=== PATIENT | female | born 1940 | race Caucasian/White ===

== ENCOUNTER 2022-10-06 16:53 | Emergency (ER) | payer MEDICARE, SELFPAY ==
[2022-10-06 17:07] VITALS: BP 142/112; PULSE 83; RESP 16; TEMP 36.9; O2SAT 97
--- NOTE | 2022-10-06 17:45 | ED.EXTPRO ---
HPI - Extremity Problem General Chief complaint: Extremity Problem,Nontraumatic <Xiao Shah APRN - Last Filed: 10/06/22 18:50> Stated complaint: left hip pain radiating to left leg <Xiao Shah APRN - Last Filed: 10/06/22 18:50> Time Seen by Provider: 10/06/22 17:31 <Xiao Shah ACCOUNTING OFFICER - Last Filed: 10/06/22 18:50> History of Present Illness HPI Narrative: 82-year-old female presents to the emergency room today for complaints of low back pain that radiates down her left leg. The pain starts at the top of her left buttock and radiates down the left thigh and also goes into the lower part of her leg as well. Denies any numbness or tingling. She is able to ambulate no weakness. Denies any urinary or bowel incontinence. She has been having problems with this since May but has been getting much worse over the past couple of weeks. She is having more difficulty finding position of comfort and is having a hard time sleeping at night. She saw someone at the urgent care a week ago and was given a Medrol Dosepak which did not help. Other than that she has been taking [id number] pain reliever. <Xiao Shah ACCOUNTING OFFICER - Last Filed: 10/06/22 18:50> Related Data Allergies/Adverse reactions: Allergies Allergy/AdvReac Type Severity Reaction Status Date / Time No Known Allergies Allergy Mild Verified 10/06/22 17:15 <Xiao Shah APRN - Last Filed: 10/06/22 18:50> Review of Systems Review of Systems: CONSTITUTIONAL: Denies fever, chills, or sweats. EYES: Denies visual changes, redness, or discharge. ENT: Denies rhinorrhea, congestion, sore throat, or otalgia. CARDIOVASCULAR: Denies chest pain, palpitations, or edema. RESPIRATORY: Denies cough or dyspnea. GASTROINTESTINAL: Denies abdominal pain, nausea, vomiting, or diarrhea. GENITOURINARY: Denies dysuria or hematuria. SKIN: Denies rash or itching. MUSCULOSKELETAL: As per HPI NEUROLOGIC: Denies headache, numbness, dizziness, or weakness. PSYCHIATRIC: Denies anxiety or depression. <Xiao Shah APRN - Last Filed: 10/06/22 18:50> Exam Narrative: GENERAL: Well-appearing, well-nourished, and in no acute distress. HEAD: Normocephalic, atraumatic. NECK: Supple. No adenopathy or masses. No carotid bruits or JVD CHEST: Clear to auscultation. No respiratory distress. No wheezes rales or rhonchi HEART: Regular rate and rhythm. No murmur heard. Normal peripheral pulses. ABDOMEN: Soft, nontender, nondistended, normal active bowel sounds. EXTREMITIES: Normal range of motion. No edema. SKIN: Warm, dry, no rash. NEURO: No focal deficits. Alert and oriented x3. PSYCH: Normal mood and affect. <Xiao Shah, ACCOUNTING OFFICER - Last Filed: 10/06/22 18:50> Course BLOCK PLACER/PA Physician Supervision This is a was performed by both a physician and an APC. I performed all aspects of the MDM as documented w/ the following additions: 82-year-old son have back pain rating down the leg. No red flags on history and physical. Given symptomatic treatment and discharge. All questions answered. Patient in agreement w/ disposition. <Luis Luke MD - Last Filed: 10/09/22 03:50> Vital Signs Vital signs: Vital Signs Temperature 98.5 F 10/06/22 17:07 Pulse Rate 83 10/06/22 17:07 Respiratory Rate 16 10/06/22 17:07 Blood Pressure 142/112 H 10/06/22 17:07 Pulse Oximetry 97 10/06/22 17:07 Oxygen Delivery Room Air 10/06/22 17:07 Temperature 98.5 F 10/06/22 17:07 Pulse Rate 83 10/06/22 17:07 Respiratory Rate 16 10/06/22 17:07 Blood Pressure 142/112 H 10/06/22 17:07 Pulse Oximetry 97 10/06/22 17:07 Oxygen Delivery Room Air 10/06/22 17:07 <Xiao Shah ACCOUNTING OFFICER - Last Filed: 10/06/22 18:50> Vital Signs Temperature 98.5 F 10/06/22 17:07 Pulse Rate 83 10/06/22 17:07 Respiratory Rate 16 10/06/22 17:07 Blood Pressure 142/112 H 10/06/22 17:07 Pulse Oximetry
[2022-10-06] MEDS: TRIAMCINOLONE ACET INJ SUSP 50 MG/5 ML VIAL 40 MG IM (18:53)
[2022-10-06] MEDS: traMADol HCL (*CRX) 50 MG TABLET PO (18:53)
[2022-10-06] MEDS: TIZANIDINE HCL 2 MG TABLET PO (18:53)
== END 2022-10-06 19:06 | disposition home or self-care (01) ==
PROVIDERS: Emergency Provider Nurse Practitioner Family
DX: M54.42 Lumbago with sciatica, left side (principal)
CPT/HCPCS: 96372; 99283; A9270; J3301

== ENCOUNTER 2023-06-07 08:18 | Outpatient (CLI) | payer MEDICARE, SELFPAY ==
[2023-06-07 19:45] LABS: Basophils Percent Auto 0.5 % (0.2-1.2); Eosinophils Absolute Auto 0.3 K/mm3 (0-0.3); Eosinophils Percent Auto 3.8 % (0-4.4); Hematocrit 44.5 % (37.0-47.0); Hemoglobin 14.3 g/dL (12.0-15.0); Immature Granulocyte Absolute 0.02 K/mm3 (0.00-0.031); Immature Granulocyte Percent A 0.3 % (0-0.5); Lymphocytes Absolute Auto 2.17 K/mm3 (0.9-3.2); Lymphocytes Percent Auto 29.6 % (18.3-44.2); Mean Corpuscular HGB Conc 32.1 g/dl (32-36); Mean Corpuscular Hemoglobin 30.7 pg (26-34); Mean Corpuscular Volume 95.5 fl (80-100); Mean Platelet Volume 10.4 fl (7.4-10.4); Monocytes Absolute Auto 0.9 K/mm3 (0.1-0.6); Monocytes Percent Auto 12.8 % (2.6-8.5); Neutrophils Absolute Auto 3.9 K/mm3 (1.3-6.7); Platelet Count Result 248 k/mm3 (150-375); Red Blood Count 4.66 M/mm3 (4.2-5.4); Red Cell Distribution Width 14.3 % (11.5-14.5); White Blood Count 7.3 K/mm3 (4.5-10.0)
[2023-06-07 20:33] LABS: Alanine Aminotransferase 26 U/L (6-35); Albumin Level 4.3 g/dL (3.5-5.1); Alkaline Phosphatase 86 U/L (38-126); Anion Gap 6 mmol/L (8-16); Aspartate Amino Transferase 39 U/L (14-36); Bilirubin,Total 0.8 mg/dL (0.2-1.3); Blood Urea Nitrogen 17 mg/dL (7-17); Calcium 9.3 mg/dL (8.4-10.2); Carbon Dioxide 33 mmol/L (22-30); Chloride 98 mmol/L (98-107); Cholesterol 210 mg/dL (0-200); Estimated Glomerular Filt Rate > 60; Glucose 105 mg/dL (65-110); HDL Direct 72 mg/dL; Potassium 4.3 mmol/L (3.4-5.0); Sodium 137 mmol/L (137-145); Triglycerides 110 mg/dL (<150)
[2023-06-07 20:45] LABS: LDL Cholesterol Direct 99 mg/dL
[2023-06-12 22:02] LABS: Apolipoprotein B 99 mg/dL (<90)
== END 2023-06-07 08:19 | disposition home or self-care (01) ==
LOC: ANHGOSHLAB 08:20
PROVIDERS: PCP Internal Medicine; Visit Provider Internal Medicine
DX: E78.5 Hyperlipidemia, unspecified (principal); I10 Essential (primary) hypertension
CPT/HCPCS: 36415; 80053; 80061; 82172; 85025

== ENCOUNTER 2023-06-22 08:31 | Outpatient (CLI) | payer MEDICARE, SELFPAY ==
--- NOTE | ~2023-06-22 | DEXA_ITS ---
Bone Density Report Name: LUPILLO MORENO Age: 83 Sex: Female Ethnicity: White Date of : 1940 Indication: postmenopausal; screening for osteoporosis; height loss; cancer; Referring Provider: ROMI BELL Study: Bone densitometry was performed. Exam Date: June 22, 2023 Accession number: [id number] Bone Density: Region BMD T-score Z-score Classification AP Spine(L1-L4) 1.138 0.8 3.7 Normal Femoral Neck (Left) 0.735 -1.0 1.4 Normal Total Hip (Left) 0.869 -0.6 1.7 Normal Femoral Neck (Right) 0.687 -1.5 1.0 Osteopenia Total Hip (Right) 0.861 -0.7 1.6 Normal Total Hip Mean 0.865 -0.7 1.7 Normal World Health Organization criteria for BMD impression classify patients as: Normal (T-score at or above -1.0), Osteopenia (T-score between -1.0 and -2.5), or Osteoporosis (T-score at or below -2.5). 10-year Fracture Risk(1): Major Osteoporotic Fracture 13% Hip Fracture 3.4% Reported Risk Factors: [place] (), Neck BMD=0.687, BMI=27.5 (1) FRAX(R) Version 3.08. Fracture probability calculated for an untreated patient. Fracture probability may be lower if the patient has received treatment. Clinical Information Provided by Patient: Has used the following medications: Vitamin D, Calcium Has the following medical conditions: Cancer Patient maximum height was 66 Menopause Age: 44 Does not regularly consume dairy products Drinks caffeinated beverages Onset of menses at age 13 Number of children 2 Impression: The patient has low bone mass, based on the Right Femoral Neck T-score. The patient has an estimated ten-year risk of hip fracture of 3.4% and an estimated ten-year risk of major fracture of 13%, based on the WHO FRAX algorithm. Discussion: BONE DENSITY IS LOW AT ONE OR MORE SKELETAL SITES. THE PATIENT'S BMD AND CLINICAL RISK FACTORS CONTRIBUTE TO THIS PATIENT'S INCREASED RISK OF FRACTURE. This patient's lowest T-score is low at one or more skeletal sites. It meets the World Health Organization's (WHO) criteria for ?low bone mass? (T-score between -1.0 and -2.5). The patient's 10-year risk of hip fracture as calculated by FRAX exceeds the threshold where pharmacological therapy is recommended by the National Osteoporosis Foundation (NOF). However, all treatment decisions require clinical judgment and consideration of individual patient factors, including patient preferences, comorbidities, previous drug use, risk factors not captured in the FRAX model (e.g., frailty, falls, vitamin D deficiency, increased bone turnover, interval significant decline in bone density) and possible under or overestimation of fracture risk by FRAX. The patient should follow a healthful lifestyle (good nutrition with adequate calcium and vitamin D, and appropriate weight-bearing exercise).
== END 2023-06-22 08:32 | disposition home or self-care (01) ==
LOC: ANHIMG 08:32
PROVIDERS: PCP Internal Medicine; Visit Provider Internal Medicine
DX: M85.88 Other specified disorders of bone density and structure, other site (principal); Z78.0 Asymptomatic menopausal state
CPT/HCPCS: 77080

== ENCOUNTER 2023-08-07 16:02 | Emergency (ER) | payer MEDICARE, SELFPAY ==
[2023-08-07 16:02] VITALS: BP 127/94; PULSE 83; RESP 16; TEMP 36.5; O2SAT 97
--- NOTE | 2023-08-07 17:19 | PC.NURSE ---
Patient to desk reporting she feels better and the pain is gone. Patient states she is going to leave. Patient amb out of ED with steady gait and in no acute distress.
== END 2023-08-07 17:40 | disposition left against medical advice (07) ==
LOC: ANHED 17:36
PROVIDERS: PCP Internal Medicine
DX: R10.30 Lower abdominal pain, unspecified (principal)
CPT/HCPCS: 99199

== ENCOUNTER 2023-12-05 09:29 | Outpatient (CLI) | payer MEDICARE, SELFPAY ==
--- NOTE | ~2023-12-05 | MM_ITS ---
EXAMINATION: MM screening stephy BI w isaura HISTORY: Screening TECHNIQUE: Craniocaudal and mediolateral oblique 3-D tomosynthesis images were obtained and synthetic 2-D images were generated. CAD analysis was submitted and interpreted. COMPARISON: No prior mammogram is available for comparison at this institution. BREAST PARENCHYMAL COMPOSITION: Not dense: There are scattered areas of fibroglandular density. FINDINGS: The right breast is unremarkable without evidence for malignancy. There is focal asymmetry in the upper outer quadrant of the left breast, middle third. There is an adjacent tissue marker. IMPRESSION: 1. Left breast asymmetry. 2. Recommend comparison to previous outside mammograms. BI-RADS Category 0: Incomplete: Needs additional imaging evaluation. Reviewed, dictated and finalized at location B.
== END 2023-12-05 09:30 | disposition home or self-care (01) ==
PROVIDERS: PCP Internal Medicine; Visit Provider Clinical Nurse Specialist
DX: Z12.31 Encounter for screening mammogram for malignant neoplasm of breast (principal); R92.8 Other abnormal and inconclusive findings on diagnostic imaging of breast
CPT/HCPCS: 77063; 77067

== ENCOUNTER 2024-01-02 09:01 | Outpatient (CLI) | payer MEDICARE, SELFPAY ==
[2024-01-02 13:42] LABS: Kit Draw Collected
== END 2024-01-02 09:02 | disposition home or self-care (01) ==
LOC: ANHGOSHLAB 09:03
PROVIDERS: PCP Internal Medicine
DX: E78.00 Pure hypercholesterolemia, unspecified (principal); I10 Essential (primary) hypertension
CPT/HCPCS: 36415

== ENCOUNTER 2024-02-04 11:16 | Outpatient (CLI) | payer MEDICARE, SELFPAY ==
[2024-02-04 13:38] LABS: Thyroid Stimulating Hormone 0.882 uIU/mL (0.465-4.680); Total Triiodothyronine (T3) 0.99 NG/ML (0.97-1.69)
[2024-02-04 14:59] LABS: Free T4 Free Thyroxine 1.59 ng/mL (0.78-2.19)
== END 2024-02-04 11:17 | disposition home or self-care (01) ==
PROVIDERS: PCP Internal Medicine
DX: E89.0 Postprocedural hypothyroidism (principal)
CPT/HCPCS: 36415; 84439; 84443; 84480

== ENCOUNTER 2024-06-25 09:06 | Outpatient (CLI) | payer MEDICARE, SELFPAY ==
--- OUTSIDE RECORDS SUMMARY | 2024-06-25 10:05 | XMS_ITS | Patient Health Record ---
Author Organization [facility] Address [address] [address] Care Team Providers Care Change Agent Name Role Phone PurnimaAvaubaldolornalee Primary Care Provider Najma anglin Sandhya Joy Unavailable [phone] ALLERGIES No Known Allergies RESULTS Component Value Reference Range Notes TSH, 3RD GENERATION Reviewed date:07/26/2023 02:06:06 PM Interpretation: Performing Lab:[facility], [address] [place], [address] Noah Deleon Notes/Report: FASTING:NO FASTING: NO TSH 7.62 0.40-4.50 mIU/L T3, TOTAL Reviewed date:07/26/2023 05:28:21 AM Interpretation: Performing Lab:[facility], [address] [place], [address] Noah Deleon MD Notes/Report: FASTING:NO FASTING: NO T3, TOTAL 71 76-181 ng/dL T4, FREE Reviewed date:07/26/2023 05:28:27 AM Interpretation: Performing Lab:[facility], [address] [place], [address] Noah Deleon MD Notes/Report: FASTING:NO FASTING: NO T4, FREE 1.4 0.8-1.8 ng/dL TSH, 3RD GENERATION Reviewed date:09/16/2023 08:17:02 AM Interpretation: Performing Lab:[facility], [address] [facility], [place], [address] RafaelaYaz Deleon MD Notes/Report: TSH 2.21 0.40-4.50 mIU/L T3, TOTAL Reviewed date:09/11/2023 12:26:47 PM Interpretation: Performing Lab:[facility], [facility], [address], [place], [address] RafaelaYaz Deleon MD Notes/Report: T3, TOTAL 77 76-181 ng/dL T4, FREE Reviewed date:09/11/2023 12:27:04 PM Interpretation: Performing Lab:[facility], [facility], [address] [facility], [place], [address] [facility] Notes/Report: T4, FREE 1.6 0.8-1.8 ng/dL TSH Reviewed date:12/24/2023 05:16:16 PM Interpretation: Performing Lab:[facility], [address] [place] [address], Phone - [phone], Director - [facility] Notes/Report: TSH 0.237 0.450-4.500 uIU/mL T4, Free Reviewed date:12/24/2023 05:10:53 PM Interpretation: Performing Lab:[facility], [address] [place] [address], Phone - [phone], Director - [facility] Notes/Report: T4,Free(Direct) 2.10 0.82-1.77 ng/dL T3, Total Reviewed date:12/24/2023 05:10:58 PM Interpretation: Performing Lab:[facility], [address] [place] [address], Phone - [phone], Director - [facility] Notes/Report: Triiodothyronine (T3) 90 71-180 ng/dL TSH, 3RD GENERATION Reviewed date:02/05/2024 02:25:54 PM Interpretation: Performing Lab: Notes/Report: TSH, 3RD GENERATION 0.882 0.47 - 4.68 ilU/mL T3, TOTAL Reviewed date:02/05/2024 10:40:32 AM Interpretation: Performing Lab: Notes/Report: T3, TOTAL 0.99 76 - 180 ng/dL T3, Total T4, FREE Reviewed date:02/05/2024 10:40:37 AM Interpretation: Performing Lab: Notes/Report: T4, FREE 1.59 TSH Reviewed date:06/24/2024 05:38:27 PM Interpretation: Performing Lab:[address], Phone - [phone], Director - [facility] Notes/Report: TSH 2.180 0.450-4.500 uIU/mL T4, Free Reviewed date:06/24/2024 02:10:46 PM Interpretation: Performing Lab:[address], Phone - [phone], Director - [facility] Notes/Report: T4,Free(Direct) 1.90 0.82-1.77 ng/dL T3, Total Reviewed date:06/24/2024 02:11:11 PM Interpretation: Performing Lab:[address], Phone - [phone], Director - [facility] Notes/Report: Triiodothyronine (T3) 73 71-180 ng/dL REASON FOR REFERRAL No Information MEDICATIONS Medication SIG (Take, Route, Frequency, Duration) Notes Start Date End Date Status hydroCHLOROthiazide 25 MG 1 tablet in th e morning Orally Once a day for 30 day(s) Active Benadryl 1/2 tab qHS prn Active Fexofenadine HCl 60 MG 1 tablet Orally Once a day Active Centrum Silver - as directed Orally Active Fish Oil 1000 MG 1 capsule Orally Once a day for 30 day(s) Active Rosuvastatin Calcium 10 MG 1 tablet Oral ly at bedtime Active Omeprazole 20 MG 1 capsule 1/2 [...] since you last smoked? > 10 years PROBLEMS Problem Type ICD Code Onset Dates Problem Status W/U Status Risk SNOMED Code Notes Problem Papillary thyroid carcinoma (C73) Active confirmed Papillary thyroid carcinoma (165123761) 12/02 The thyroid is surgically absent. 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) VITAL SIGNS Heart Rate 80 /min 2024 wt 155 on 4 Blood pressure diastolic 70 mm Hg 2024 wt 155 on 12-23-23 Height 65 in 2024 wt 155 on 4 Blood pressure systolic 128 mm Hg 2024 wt 1 55 on 12-23-23 Weight 149.6 lbs 2024 wt 155 on 4 BMI 24.89 kg/m2 2024 wt 155 on 4 Encounters Encounter Location Date Provider Diagnosis [facility] [address] [address] 12/23/2023 Sandhya Barrientosknine Hypothyroidism, postop E89.0 and Papillary thyroid carcinoma C73 [facility] [address] [address] 2024 Sandhya Young Oiknine Hypothyroidism, postop E89.0 and Papillary thyroid carcinoma C73 [facility] [address] [address] 07/26/2023 Sandhya Young Oiknine Hypothyroidism, postop E89.0 [facility] [address] [address] 09/16/2023 Sandhya Young Oiknine Hypothyroidism, postop E89.0 [facility] [address] [address] 12/23/2023 Sandhya Barrientosknine Hypothyroidism, postop E89.0 [facility] [address] [address] 02/17/2024 Sandhya Barrientosknine [facility] [address] [address], [place] [address] 03/05/2024 Sandhya Young Norberto ASSESSMENTS Encounter Date Diagnosis Assessment Notes Treatment Notes Treatment Clinical Notes 12/23/2023 Hypothyroidism, postop (ICD-10 - E89.0) Reviewed dosing and [...] no palpable thyroid tissue or cervical LAD. 2024 Hypothyroidism, postop (ICD-10 - E89.0) Reviewed dosing and [...] no palpable thyroid tissue or cervical LAD. 07/26/2023 Hypothyroidism, postop (ICD-10 - E89.0) 09/16/2023 Hypothyroidism, postop (ICD-10 - E89.0) 12/23/2023 Hypothyroidism, postop (ICD-10 - E89.0) PLAN OF TREATMENT Next Appt Details Provider Name:Sandhya Ventura komal Thornton, 12/21/2024 11:30:00 AM, [address] [facility] [address], [place], [address], Insurance Providers Payer Name Payer Address Payer Phone Subscriber Number Group Number Insured Name Patient Relationship to Insured Coverage Start Date Coverage End Date Medicare [address] [address] [place] [address] [id number] Nohelia Hinojosa Self - patient is the insured [employer] [address] [place] [address] [id number] Nohelia Hinojosa Self - patient is the insured MEDICAL (GENERAL) HISTORY Medical History History ICD Code HBP High Cholesterol Hypothyroid s/p total thyroidectomy 2002 Papillary Thyroid Carcinoma, 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
--- OUTSIDE RECORDS SUMMARY | 2024-06-25 10:05 | XMS_ITS ---
Author Organization [facility] Address [address] [address] Care Team Providers Care Oracle Application Architect Name Role Phone PurnimaDaniel ball Primary Care Provider Sandhya Soni REASON FOR VISIT CCM MEDICATIONS Medication SIG (Take, Route, Fr equency, Duration) Notes Start Date End Date Status Omeprazole 20 MG 1 capsule 1/2 to 1 h our before morning meal Orally Once a day for 30 day(s) 02/17/2024 Active Encounters Encounter Location Date Provider Diagnosis [facility] [address] [address] 02/17/2024 Sandhya Thornton PLAN OF TREATMENT Medication Medication Name Sig Start Date Stop Date Notes Omeprazole 20 MG 1 capsule 1/2 to 1 h our before morning meal Orally Once a day for 30 day(s) 02/17/2024 Next Appt Details Provider Name:Sandhya Thornton, 12/21/2024 11:30:00 AM, [address], [address],
--- OUTSIDE RECORDS SUMMARY | 2024-06-25 10:05 | XMS_ITS | Encounter Summary ---
Author Organization [facility] Address [address] [place] [address] Care Team Providers Care Chemical Plant Operator Supervisor Name Role Phone Shawn Constantino MD Primary Care Provider [phone] Encounter Details Date Type Department Care Team (Late st Contact Info) Description 10/26/1999 Outpatient Historical [facility] Shawn Constantino MD [address] [place] [address] Social History Tobacco Use Types Packs/Day Years Used Date Smoking Tobacco: Never Assessed Comments Unknown Sex and Gender Information Value Date Recorded Sex Assigned at Not on file Legal 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
--- OUTSIDE RECORDS SUMMARY | 2024-06-25 10:05 | XMS_ITS ---
Author Organization [facility] Address [address] [address] Care Team Providers Care Kitchen And Bath Designer Name Role Phone Daniel Felton Primary Care Provider Sandhya Soni REASON FOR VISIT Synthroid Question MEDICATIONS Medication SIG (Take, Route, Fr equency, Duration) Notes Start Date End Date Status Synthroid 100 MCG 1 tablet in the morn ing on an empty stomach Orally Once a day for 30 day(s) 03/10/2024 Active Encounters Encounter Location Date Provider Diagnosis [facility] [address] [address] 03/05/2024 Sandhya Thornton PLAN OF TREATMENT Medication Medication Name Sig Start Date Stop Date Notes Synthroid 112 MCG TAKE 1 TABLET BY RALPH TH EVERY DAY FOR 90 DAYS Synthroid 100 MCG 1 tablet in the morn ing on an empty stomach Orally Once a day for 30 day(s) 03/10/2024 Next Appt Details Provider Name:Sandhya Thornton, 12/21/2024 11:30:00 AM, [address], [address],
--- OUTSIDE RECORDS SUMMARY | 2024-06-25 10:05 | XMS_ITS | Patient Health Record ---
Author Organization [facility] Address [address] [place] [address] Care Team Providers Care Enterprise Mobility Architect Name Role Phone Shawn Constantino Primary Care Provider Namja Ruvalcaba DPM, Elia Unavailable [phone] ALLERGIES No Known Allergies REASON FOR REFERRAL No Information MEDICATIONS Medication SIG (Take, Route, Fr equency, Duration) Notes Start Date End Date Status Aspirin Active [place] 3 Active Centrum Silver Activ e Meloxicam 7.5 MG 1 tablet Orally Once a day for 30 days 10/08/2022 Active hydroCHLOROthiazide Active Deepthi Active Calcium Active Vitamin D Active Synthroid Active Voltaren Active Aleve Active Crestor Active IMMUNIZATIONS Vaccine Route Administration Date Status Comme nts Influenza Unknown 07/27/2020 Administered pneumoccocal Unknown 07/27/2020 Administered SOCIAL HISTORY Tobacco Use: Social History Observation Description Date Details (start date - stop date) Former Smoker NA - NA Sex Assigned At : Social History Observation Description Sex Assigned At Unknown Tobacco Use: Question Answer Notes Patient is a: former smoker Alcohol screening: Question Answer Notes Did you have a drink contain ing alcohol in the past year? Yes How often did you have a dri nk containing alcohol in the past year? Four or more times a week (4 points) How many drinks did you have on a typical day when you were drinking in the past year? 1 or 2 (0 points) How often did you have six o r more drinks on one occasion in the past year? Never (0 points) Points 4 Interpretation Positive PROBLEMS Problem Type ICD Code Onset Dates Problem Status W/U Status Risk SNOMED Code Notes Problem Flat foot [pes planus] (acquired), right foot (M21.41) 2 Active confirmed 858546602677049 Problem Impingement syndrome of right shoulder (M75.41) Active confirmed 497494468020520 Problem Bursitis of right shoulder (M75.51) Active confirmed 132133620541388 Problem Peroneal tendinitis, right leg (M76.71) 2 Active confirmed Peroneal tendinitis (44740081) Problem Posterior tibial tendinitis, right leg (M76.821) 2 Active confirmed [id number] PLAN OF TREATMENT No Information Insurance Providers Payer Name Payer Address Payer Phone Subscriber Number Group Number Insured Name Patient Relationship to Insured Coverage Start Date Coverage End Date Medicare [address] [place] [address] [phone] [id number] Nohelia Hinojosa Self - patient is the insured [facility] [address] [place] [address] [phone] [id number] CouNohelia wynn Self - patient is the insured MEDICAL (GENERAL) HISTORY Medical History History ICD Code thyroid cancer skin cancer mitral valve prolapse hypertension hyperlipidemia Surgical History Surgery Date(Month/Year) symptomatic right foot hardware removal 11/24/13 right hallux MTP joint fusion and a seco nd hammertoe repair 05/01/13 lt hallux MTP jont arthrodes is, lt 2nd hammer toe repair, lt 2nd metatarsal neck osteotomy 05/09/10 thyroidectomy 2003 gallbladder
--- OUTSIDE RECORDS SUMMARY | 2024-06-25 10:05 | XMS_ITS ---
Author Organization [facility] [place] Address [address] [place] [address] Care Team Providers Care Automatic Silk Screen Printer Name Role Phone Haile Maravilla Unavailable [phone] ALLERGIES No Known Allergies REASON FOR VISIT MCR/SUPP/ Dr. 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) Active confirmed Localized, primary osteoarthritis of the pelvic region and thigh (075354508) Problem 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) Active confirmed Inflammation o f left sacroiliac joint (5464437740) Problem History of lumbar laminectomy (Z98.890) Active confirmed History of lumb ar laminectomy ([id number]) VITAL SIGNS Temperature 98.1 degrees Fahrenheit 01/15/20 23 Blood pressure systolic 160 mm Hg 01/15/20 23 Blood pressure diastolic 84 mm Hg 023 Heart Rate 84 /min 01/14/2023 Respiratory Rate 18 /min 01/14/2023 Height 65 in 01/14/2023 Weight 155 lbs 01/14/2023 BMI 25.79 kg/m2 01/14/2023 Encounters Encounter Location Date Provider Diagnosis [facility] [address] [address] 01/14/2023 Haile Maravilal Arthropathy of left hip M16.12 ; Inflammation of left sacroiliac joint M46.1 and History of lumbar laminectomy Z98.890 ASSESSMENTS Encounter Date Diagnosis Assessment Notes Treatment Notes Treatment Clinical Notes Section Notes 01/14/2023 Arthropathy of left hip (ICD-10 - M16.12) Impression1. Persistent left hip pain although plain radiographs do not demonstrate significant osteoarthritic changes.2. Possible component left sacroiliitis.3. Other causes for unilateral hip/thigh pain might include lower lumbar facet arthropathy (lumbar spondylosis).4. Subacute left L4/5 hemilaminotomy/lat eral recess decompression 11/15/2022.Plan1. Proceed with left hip joint injection with fluoroscopy. She does not request sedation.2. Patient will call progress report to Dr. Palomo Solorzano's office over the next couple of days. Pain scores on numeric scale:Preinje ction: 08/22Post injection: 210 01/14/2023 Inflammation of left sacroiliac joint (ICD-10 - M46.1) 01/14/2023 History of lumbar laminectomy (ICD-10 - Z98.890) PLAN OF TREATMENT Treatment Notes Assessment Notes Arthropathy of left hip Impression1. Per sistent left hip pain although plain radiographs do not demonstrate significant osteoarthritic changes.2. Possible component left sacroiliitis.3. Other causes for unilateral hip/thigh pain might include lower lumbar facet arthropathy (lumbar spondylosis).4. Subacute left L4/5 hemilaminotomy/lateral recess decompression 11/15/2022.Plan1. Proceed with left hip joint injection with fluoroscopy. She does not request sedation.2. Patient will call progress report to Dr. Palomo Solorzano's office over the next couple of days. MEDICATIONS ADMINISTERED Medication Instructions Date of Administration Dosage Notes LEFT Hip Joint Injection wit h fluoroscopy 01/14/2023 Procedure Notes * Category Sub-Category Detail Notes DGS: Hip Joint Injections Left Hip Joint Injection Left hip joint injection wit h fluoroscopyAfter signing consent, patient was taken to procedure area where she was placed supine on fluoroscopically compatible table. Monitors were applied consisting of automatic blood pressure cuff and pulse oximeter. No sedation was administered and no IV established. Left inguinal/proximal anterior thigh prepped with ChloraPrep, allowed to dry on the skin. Sterile drapes were applied and aseptic technique observed. Using AP fluoroscopy, with internal rotation of the left lower extremity to improve image quality, left hip joint was identified and overlying skin anesthetized with 0.25% preservative-free bupivacaine via 27-gauge needle. A 22-gauge 3.5 inch spinal needle was inserted in contact made anteriorly at the junction between femoral head/neck. After negative aspiration for blood or joint fluid, injection of less than 1.5 mL Omnipaque 240 revealed filling of the hip joint capsule and femoro-acetabular joint space. This was followed by injection of 7 mL volume containing 0.25% preservative-free bupivacaine with 40 mg preservative-free triamcinolone. Needle was withdrawn tip intact. No complications were encountered. Latex free Band-Aid was placed over the puncture site. She was transported to recovery area where she was observed for short while before being discharged in satisfactory condition. She was improved at the time of discharge. Please refer to clinical notes for specific pain scores. Progress Notes * Nohelia HINOJOSA:1940 ( 82 yo F)Acc No.[id number]:01/14/2023 Progress Notes Patient: Nohelia Hinojosa Provider: Haile Maravilla DO :1940 Age:82 Y Sex:Female Date:01/14/2023 Address:[address] [place], [place] [address] Subjective: * Chief Complaints: * MCR/SUPP/ Dr. Palomo Solorzano/ YULIYA and LEFT Hip Joint Injection (local) * HPI: New Patient Questionnaire: Pain Evaluation The patient completed a questionnaire that best described the pain. This form was reviewed and the responses included in this note. When did the pain first begin? months ago. What caused the pain? unknown. Where does the pain start? left hip and thigh. Where does the pain seem to travel? to knee. On scale of 1 to 10, what is the pain like today? 5. On a scale of 1 to 10, what is your least pain? 3. On a scale of 1 to 10, what is your worst pain? 6. On a scale of 1 to 10, what is your overall average pain? 5. In your words, what best describes your pain? aching. The pain is best described as: moderate. As times goes by, is the pain getting? about the same. Which symptoms is the pain associated with? weakness. What makes the pain worse? walking, standing, rolling in bed, moving from sitting to standing. Which factors seem to relieve the pain? sitting. What previous treatments have you tried? heat. Have you ever tried Physical Therapy? yes- 4 months ago. List past medications taken for your pain problem aleve. Oswestry Score 0. This 82-year-old white female presents the pain clinic today upon referral from Dr. Palomo Solorzano, her neurosurgical end user consultant, suggesting left hip joint injection. This patient describes previous left sciatic symptoms that resolved following left L4/5 hemilaminotomy/lateral recess decompression 11/15/2022. Within a few days of surgery, she noted pain along the left lateral hip, anterior thigh and inguinal region. Previously, she had been involved in physical therapy July and August 2022 with no substantial improvement. She gives history of left-sided pelvic fracture 1994, treated conservatively of uncertain clinical contribution. She does not describe residual numbness in the lower extremities nor does she describe foot drop or neurogenic bowel/bladder symptoms. She has history of thyroid cancer 2002 treated with thyroidectomy and subsequent I-131 making her hypothyroid for which she takes HRT, hypertension and hyperlipidemia. She is a non-smoker. She denies known drug allergies. I adalid study X -ray left hip 08/20/2022 revealed mild arthritic changes with no acute findings. * ROS: Pain Management ROS: Patient Denies: GENERAL: weight or appetite changes, fever, chills, disturbed sleeping habits. Patient Denies: EYE: eye infections, blurred vision, double vision, blindness. Patient Denies: ENT: hearing loss, inflamed nose, hoarseness, sore throat, bloody nose, sinusitis, dizziness. Patient Denies: CARDIAC: chest pains, heart murmur, skipped beats. Patient Denies: GENITOURINARY bladder incontinence, difficulty urinating. Patient Denies: RESPIRATORY cough, coughing up blood, wheezing, shortness of breath, difficulty breathing on exertion. Patient Denies: GI constipation, diarrhea, blood in stools, nausea/vomiting. Patient Denies: NEUROLOGIC headaches, dizziness, falling, seizures, numbness, tremor. Patient Denies: ENDOCRINE hot and cold flashes. Patient Denies: HEMATOLOGICAL easy bruisability, difficulty in clotting the blood. Patient Denies: JOINTS joint or muscle limitation and pain other than the present illness. Patient Denies: PSYCHIATRIC: depression, mood swings, anxiety. Patient Denies: SKIN lacerations, abrasions, postules, nodules, tumors, breast changes. * Medical History: * Surgical History: gallbladder 2000thyroidectomy 2022 * Hospitalization/Major Diagno stic Procedure: No Hospitalization History. * Family History: Father: . Mother: . * Social History: Tobacco Use: Tobacco Use/Smoking Are you a former smoker How long has it been since you last smoked? > 10 years Occupation Status: Employment Status: Retired. Marital Status: Marital Status: . Workmen's Compensation: Work Comp Status: Not being treated under Workmen's Compensation, Not Receiving Disability benefits, Not involved in legal action related to pain problem or considering it in the future. Number of Children: Number of children: 2. Education: How far did you get in your education?: college. Drugs/Alcohol: Caffeine Intake: 1-2 cups per day Do you drink alcohol?: Socially. * Medications: TakingAleve Deepthi Allergy 60 MG Tablet 1 tablet Orally Twice a day Fish Oil Calcium Crestor 10 MG Tablet 1 tablet Orally Once a day hydroCHLOROthiazide 25 MG Tablet Oral Synthroid 88 MCG Tablet Oral Acetyl Salicylic Acid Medication List reviewed and reconciled with the patientTaking Aleve Taking Deepthi Allergy 60 MG Tablet 1 tablet Orally Twice a day Taking Fish Oil Taking Calcium Taking Crestor 10 MG Tablet 1 tablet Orally Once a day Taking hydroCHLOROthiazide 25 MG Tablet Oral Taking Synthroid 88 MCG Tablet Oral Taking Acetyl Salicylic Acid Medication List reviewed and reconciled with the patient * Allergies: N.K.D.A.no[Allergies Verified] Objective: * Vitals: Temp: 98.1 F, HR: 84 /min, BP: 160/84 mm Hg, Wt: 155 lbs, BMI: 25.79 Index, Ht: 65 in, RR: 18 /min, Ht-cm: 165.1 cm, Wt-k.31 kg. * Examination: DGS: New Patient Exam: General The patient appeared in no distress at rest, The patient is alert and oriented to time, person, and place. Respiratory The lungs are grossly clear to auscultation in all benz. Cardiovascular Auscultation reveals a regular rate and sinus rhythm without obvious murmur. There are no extra sounds. The carotid upstroke is brisk and there are no bruits. There is no peripheral edema. Gastrointestinal Abdomen is soft and nontender without obvious organomegaly or masses. Musculoskeletal Fairly well compensated gait is observed. Midline lumbar scar consistent with surgical history. No appreciable lumbar paravertebral tenderness noted. She reported only tightness with greater than 60 degrees trunk flexion and minimal discomfort with 15 degrees trunk extension, both evaluated from upright standing position. In seated position, Flo's on the right was grossly unremarkable. Findings on the left were unremarkable with only slight hint of limitation full internal rotation. Semaj on the left is at least equivocally positive. There was no focal tenderness over the lateral aspect of the hip/trochanteric area.? Overlying skin appears normal.. Neurologic Patient does not describe discrete areas of sensory loss in the lower extremities as tested by light touch. DTRs +1 bilateral patella and Achilles. Sciatic stretch sign grossly negative. With somewhat tight hamstrings. Bilateral ankle dorsiflexion and plantarflexion against resistance appear normal. Specific bilateral EHL function against resistance is normal. She does not describe neurogenic bowel/bladder symptoms.. Assessment: * Assessment: 1. Arthropathy of left hip - M16.12 (Primary) 2. Inflammation of left sacroiliac joint - M46.1 3. History of lumbar laminectomy - Z98.890 Plan: * Treatment: * Procedures: DGS: Hip Joint Injections: Left Hip Joint Injection Left hip joint injection with fluoroscopy After signing consent, patient was taken to procedure area where she was placed supine on fluoroscopically compatible table. Monitors were applied consisting of automatic blood pressure cuff and pulse oximeter. No sedation was administered and no IV established. Left inguinal/proximal anterior thigh prepped with ChloraPrep, allowed to dry on the skin. Sterile drapes were applied and aseptic technique observed. Using AP fluoroscopy, with internal rotation of the left lower extremity to improve image quality, left hip joint was identified and overlying skin anesthetized with 0.25% preservative-free bupivacaine via 27-gauge needle. A 22-gauge 3.5 inch spinal needle was inserted in contact made anteriorly at the junction between femoral head/neck. After negative aspiration for blood or joint fluid, injection of less than 1.5 mL Omnipaque 240 revealed filling of the hip joint capsule and femoro-acetabular joint space. This was followed by injection of 7 mL volume containing 0.25% preservative-free bupivacaine with 40 mg preservative-free triamcinolone. Needle was withdrawn tip intact. No complications were encountered. Latex free Band-Aid was placed over the puncture site. She was transported to recovery area where she was observed for short while before being discharged in satisfactory condition. She was improved at the time of discharge. Please refer to clinical notes for specific pain scores.. * Therapeutic Injections: LEFT Hip Joint Injection with fluoroscopy given by Haile Maravilla DO * Procedure Codes: LEFT Hip Joint Injection with fluoroscopy * Preventive Medicine: PQRS: PQRS G8420:Normal BMI - f/u plan not required. , G8428: Current medication with name, dosage, frequency, or route NOT documented, not given - performance NOT met., 1036F: Patient screened for tobacco use and identified as a non-user of tobacco.. Oswestry Score: Oswestry Score 0. * Images: * Sign off status: Completed true * Provider: Haile Maravilla DO Date: 01/14/2023 History and Physical Notes * HPI (History of Present Illness) Category Sub-Category Detail Notes Category Not es New Patient Questionnaire When did the pain first begin? months ago This 82-year-old white female presents the pain clinic today upon referral from Dr. Palomo Solorzano, her neurosurgical end user consultant, suggesting left hip joint injection. This patient describes previous left sciatic symptoms that resolved following left L4/5 hemilaminotomy/later al recess decompression 11/15/2022. Within a few days of surgery, she noted pain along the left lateral hip, anterior thigh and inguinal region. Previously, she had been involved in physical therapy July and August 2022 with no substantial improvement. She gives history of left-sided pelvic fracture 1994, treated conservatively of uncertain clinical contribution. She does not describe residual numbness in the lower extremities nor does she describe foot drop or neurogenic bowel/bladder symptoms. She has history of thyroid cancer 2002 treated with thyroidectomy and subsequent I-131 making her hypothyroid for which she takes HRT, hypertension and hyperlipidemia. She is a non-smoker. She denies known drug allergies. Imaging study X-ray left hip 08/20/2022 revealed mild arthritic changes with no acute findings. What caused the pain? unknown Where does the pain start? left hip and thigh Where does the pain seem to travel? to k nee On scale of 1 to 10, what is the pain like today? 5 On a scale of 1 to 10, what is your least pain? 3 On a scale of 1 to 10, what is your worst pain? 6 On a scale of 1 to 10, what is your overall average pain? 5 In your words, what best linsey cribes your pain? aching The pain is best described as: moderate As times goes by, is the pain getting? a bout the same Which symptoms is the pain a ssociated with? weakness What makes the pain worse? walking, altagracia ding, rolling in bed, moving from sitting to standing Which factors seem to relieve the pain? sitting What previous treatments have you tried? heat Have you ever tried Physical Therapy? ye s- 4 months ago List past medications taken for your pain problem aleve Pain Evaluation The patient complete d a questionnaire that best described the pain. This form was reviewed and the responses included in this note Oswestry Score 0 Examination Category Sub-Category Detail Notes Category Not es DGS: New Patient Exam General The patien t appeared in no distress at rest, The patient is alert and oriented to time, person, and place Respiratory The lungs are grossl y clear to auscultation in all benz Cardiovascular Auscultation reveals a regular rate and sinus rhythm without obvious murmur. There are no extra sounds. The carotid upstroke is brisk and there are no bruits. There is no peripheral edema Gastrointestinal Abdomen is soft and nontender without obvious organomegaly or masses Musculoskeletal Fairly well compensa jadon gait is observed. Midline lumbar scar consistent with surgical history. No appreciable lumbar paravertebral tenderness noted. She reported only tightness with greater than 60 degrees trunk flexion and minimal discomfort with 15 degrees trunk extension, both evaluated from upright standing position. In seated position, Flo's on the right was grossly unremarkable. Findings on the left were unremarkable with only slight hint of limitation full internal rotation. Semaj on the left is at least equivocally positive. There was no focal tenderness over the lateral aspect of the hip/trochanteric area. Overlying skin appears normal. Neurologic Patient does not linsey cribe discrete areas of sensory loss in the lower extremities as tested by light touch. DTRs +1 bilateral patella and Achilles. Sciatic stretch sign grossly negative. With somewhat tight hamstrings. Bilateral ankle dorsiflexion and plantarflexion against resistance appear normal. Specific bilateral EHL function against resistance is normal. She does not describe neurogenic bowel/bladder symptoms.
--- OUTSIDE RECORDS SUMMARY | 2024-06-25 10:05 | XMS_ITS | Clinical Summary ---
Author Organization [facility] Address [address] [place] [address] Phone Care Team Providers Care Right Of Way Maintenance Supervisor Name Role Phone Shawn Constantino MD Primary Care Provider [phone] Allergies No known active allergies Medications rosuvastatin (CRESTOR) 10 mg tablet Take 10 mg by mouth daily at bedtime. Active multivitamin (DAILY-CASE) tablet Take 1 Tablet by mouth daily. Active hydrochlorothia zide 25 mg tablet Take 25 mg by mouth daily. Active levothyroxine 100 mcg tablet Take 100 mcg by mouth. 02/16/2022 Active fexofenadine (Deepthi Allergy) 60 mg tablet Take 180 mg by mouth daily. Active rosuvastatin (CRESTOR) 10 mg tablet Take 10 mg by mouth daily. Active calcium carbonate/vitam in D3 (CALCIUM 500 + D ORAL) Take 500 mg by mouth daily. Active fofrv-3-NAD-EPA -fish oil (Fish OiL) 1,000 mg Capsule Take 1 Capsule by mouth. Active naproxen sodium (Aleve) 220 mg Capsule Take 220 mg by mouth 1 time daily as needed. Active methylPREDNISol one (MEDROL DOSPACK) 4 mg Tablets, Dose Pack Medrol Dosepak as directed 21 Tablet 03/27/2023 Active Active Problems Problem Noted Date Diagnosed Date History of lumbar laminectomy 08/19/2023 Primary localized osteoarthritis of pelvic regio n and thigh 08/19/2023 Hypercholesterolemia 08/06/2022 Hypertension 08/06/2022 Localized, primary osteoarthritis of ankle or fo ot 08/06/2022 Malignant neoplasm of thyroid gland 08/06/2022 Encounters Date Type Department Care Team Description 06/03/2024 External Device Data [facility] ABSTRACTION Provider, Abstract 05/13/2024 External Device Data [facility] Provider, Abstract 05/07/2024 External Device Data [facility]STRACTION Provider, Abstract from Last 3 Months Social History Tobacco Use Types Packs/Day Years Used Date Smoking Tobacco: Former Cigarettes Tobacco Cessation:Counseling Given: Not Answered Comments Unknown Sex and Gender Information Value Date Recorded Sex Assigned at Not on file 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 Gender Identity Not on file Sexual Orientation Not on file Last Filed Vital Signs Vital Sign Reading Time Taken Comments Blood Pressure - - Pulse - - Temperature - - Respiratory Rate - - Oxygen Saturation - - Inhaled Oxygen Concentration - - Weight 70.3 kg (155 lb) 08/21/2023 10:03 AM CDT Height 165.1 cm (5' 5 ) 08/21/2023 10:03 AM CDT Body Mass Index 25.79 08/21/2023 10:03 AM CDT Plan of Treatment Health Maintenance Due Date Last Done Comments DTAP/TDAP/TD VACCINES (1 - Tdap) 06/21/1958 PNEUMOCOCCAL VACCINE 50+ YEA RS (1 of 1 - PCV) 06/21/1989 ZOSTER VACCINE (1 of 2) 06/21/1989 OSTEOPOROSIS SCREENING 06/21/2004 RSV VACCINE (60+ or ) (1 - 1-dose 75+ series) 06/21/2014 INFLUENZA VACCINE (#1) 2023 FIT/FOBT Q 1 year Discontinued 10/26/1999 COLORECTAL SCREENING Discontinued 12/13/2014, 10/20/19 05 Colorectal Cancer Screening Discontinued FIT-DNA Q 3 years Discontinued Flex Sig/CT Colonography Q 5 years Discontinued Procedures Procedure Name Priority Date/Time Associated Diagnosis Comments ENDOSCOPY, COLON, SCREENING Routine 12/13/2014 from Last 3 Months or Most Recently Relevant to Health Maintenance Results * (ABNORMAL) ENDOSCOPY, COLON, SCREENING (12/13/2014) us Saeed Pillai MD GI PROCEDURE ORDERABLES Edited R esult - Final [facility] from Last 3 Months or Most Recently Relevant to Health Maintenance Insurance [facility] SUPP MEDICARE PART A AND B Care Teams Right Of Way Maintenance Supervisor Relationship Specialty Start Date End Date Shawn Constantino MD [facility] [address] [id number] PCP - General Interventional Cardiology 12/02/14
--- OUTSIDE RECORDS SUMMARY | 2024-06-25 10:05 | XMS_ITS ---
Author Organization [facility] Address [address] [address] Care Team Providers Care Screen Roller Name Role Phone Daniel Felton Primary Care Provider Najma Olivasman Sandhya Thornton Unavailable [phone] ALLERGIES No Known Allergies RESULTS Component Value Reference Range Notes TSH Reviewed date:06/24/2024 05:38:27 PM Interpretation: Performing Lab:[facility], [address] [place] [address], Phone - [phone], Director - Bhupinder Notes/Report: TSH 2.180 0.450-4.500 uIU/mL T4, Free Reviewed date:06/24/2024 02:10:46 PM Interpretation: Performing Lab:[facility], [address] [place] [address], Phone - [phone], Director - Bhupinder Notes/Report: T4,Free(Direct) 1.90 0.82-1.77 ng/dL T3, Total Reviewed date:06/24/2024 02:11:11 PM Interpretation: Performing Lab:[facility], [address] [place] [address], Phone - [phone], Director - Bhupinder Notes/Report: Triiodothyronine (T3) 73 71-180 ng/dL REASON [...] Provider Diagnosis [facility] [address] [address] 2024 Sandhya Thornton Hypothyroidism, 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
--- OUTSIDE RECORDS SUMMARY | 2024-06-25 10:06 | XMS_ITS | Clinical Summary ---
Author Organization [facility] [address] [place] Address [address] [place] [address] Care Team Providers Care Retail Sales Manager Name Role Phone Unknown, Notinfile Primary Care Provider Unavail able Allergies No known active allergies Medications Synthroid 100 mcg tablet 2 Active rosuvastatin (CRESTOR) 10 mg tablet Take 1 tablet (10 mg total) by mouth daily Active hydroCHLOROthiaz kirby (HYDRODIURIL) 25 mg tablet Take 1 tablet (25 mg total) by mouth daily Active multivitamin tablet Take 1 tablet by mouth daily Active aspirin 81 mg enteric coated tablet 1 tablet (81 mg total) 4 Active calcium carbonate-vitami n D3 1,250mg (500mg elemental) - 5 mcg (200 units) per tablet 1 tablet(s), Oral, bid, 270 tablet(s), Tablet(s), 0 4 Active omega-3 fatty acids 1,000 mg capsule 1,000 mg 4 Active benzonatate (TESSALON) 100 mg capsuleIndicatio ns:Cough Take 1 capsule (100 mg total) by mouth 3 (three) times a day as needed for cough 21 capsule 3 Active amoxicillin-clav ulanate (Augmentin) 875-125 mg per tabletIndication s:Acute sinusitis, recurrence not specified, unspecified location Take 1 tablet by mouth 2 (two) times a day for 7 days 14 tablet 5 05/31/19 25 Active Problems Problem Noted Date Diagnosed Date Arthritis 08/06/2022 08/06/2022 Overview (08/06/2022): toes Bilateral fibrocystic breast changes 08/06/2022 08/06/2022 Essential tremor 08/06/2022 08/06/2022 Hammer toe 08/06/2022 08/06/2022 Overview (08/06/2022): right 2nd Hypercholesterolemia 08/06/2022 08/06/2022 Hypertension 08/06/2022 08/06/2022 Localized, primary osteoarthritis of ankle or fo ot 08/06/2022 08/06/2022 Malignant neoplasm of thyroid gland 08/06/2022 08/06/2022 Encounters Date Type Department Care Team Description 05/24/2024 10:15 AM TENSION MACHINE OPERATOR Office Visit [facility] at [address] [address] Lucy Siddiqi NP Acute sinusitis, recurrence not specified, unspecified location (Primary Dx) from Last 3 Months Social History Tobacco Use Types Packs/Day Years Used Date Smoking Tobacco: Former Cigarettes Comments Unknown Sex and Gender Information Value Date Recorded Sex Assigned at Not on file Legal Sex Female 11:33 AM TENSION MACHINE OPERATOR Gender Identity Not on file Sexual Orientation Not on file Obstetrics History Last Filed Vital Signs Vital Sign Reading Time Taken Comments Blood Pressure 128/76 05/24/2024 10:08 AM TENSION MACHINE OPERATOR Pulse 68 05/24/2024 10:08 AM TENSION MACHINE OPERATOR Temperature 36.6 C (97.8 F) 05/24/2024 10:08 AM TENSION MACHINE OPERATOR Respiratory Rate 24 05/24/2024 10:08 AM TENSION MACHINE OPERATOR Oxygen Saturation 97% 05/24/2024 10:08 AM TENSION MACHINE OPERATOR Inhaled Oxygen Concentration - - Weight 68 kg (150 lb) 05/24/2024 10:08 AM TENSION MACHINE OPERATOR Height 165.1 cm (5' 5 ) 01/17/2024 9:34 AM CDT Body Mass Index 24.96 01/17/2024 9:34 AM CDT Plan of Treatment Health Maintenance Due Date Last Done Comments Depression Screening 1940 Fall Risk Assessment 1940 Osteoporosis Screening-Bone Density Scan 1940 DTaP/Tdap/Td Vaccine (1 - Tdap) 06/21/1950 Hepatitis B Screening 06/21/1957 Zoster Vaccine (1 of 2) 06/21/1989 Well Visit 65+ 06/21/2004 Pneumococcal vaccine 65+ (2 of 2 - PCV) 07/27/2021 07/27/2020 Covid-19 Vaccine (2 - 2023-2 5 season) 2023 02/06/2021 Influenza Vaccine (#1) 2023 , 02/06/2022, 02/06/2022, Additional history exists Insurance MEDICARE [facility] MEDICARE [facility] MEDICARE SUPPLEMENT Care Teams Retail Sales Manager Relationship Specialty Start Date End Date Unknown, Notinfile PCP - General 02/22/22
--- OUTSIDE RECORDS SUMMARY | 2024-06-25 10:06 | XMS_ITS | Referral Summary ---
Author Organization [address] Address [address] [place] [address] Care Team Providers Care Freelance Web Designer Name Role Phone Unknown, Notinfile Primary Care Provider Unavail able Encounters Date Type Department Care Team Description 05/24/2024 10:15 AM SUPERVISOR IRRIGATION Office Visit [facility] at [address] [address] Lucy Siddiqi NP Acute sinusitis, recurrence not specified, unspecified location (Primary Dx) from Last 3 Months Allergies No known active allergies Medications Synthroid [...] Malignant neoplasm of thyroid gland 08/06/2022 08/06/2022 Social History Tobacco Use Types Packs/Day Years Used Date Smoking Tobacco: Former Cigarettes Comments Unknown Sex and Gender Information Value Date Recorded Sex Assigned at Not on file Legal Sex Female 11:33 AM SUPERVISOR IRRIGATION Gender Identity Not on file Sexual Orientation Not on file Last Filed Vital Signs Vital Sign Reading Time Taken Comments Blood Pressure 128/76 05/24/2024 10:08 AM SUPERVISOR IRRIGATION Pulse 68 05/24/2024 10:08 AM SUPERVISOR IRRIGATION Temperature 36.6 C (97.8 F) 05/24/2024 10:08 AM SUPERVISOR IRRIGATION Respiratory Rate 24 05/24/2024 10:08 AM SUPERVISOR IRRIGATION Oxygen Saturation 97% 05/24/2024 10:08 AM SUPERVISOR IRRIGATION Inhaled Oxygen Concentration - - Weight 68 kg (150 lb) 05/24/2024 10:08 AM SUPERVISOR IRRIGATION Height 165.1 cm (5' 5 ) 01/17/2024 9:34 AM CDT Body Mass Index 24.96 01/17/2024 9:34 AM CDT Plan of Treatment Not on file Insurance MEDICARE [facility] MEDICARE BLUE CROSS MEDICARE SUPPLEMENT Care Teams Freelance Web Designer Relationship Specialty Start Date End Date Unknown, Notinfile PCP - General 02/22/22
--- OUTSIDE RECORDS SUMMARY | 2024-06-25 10:06 | XMS_ITS | Patient Health Record ---
Author Organization [facility] [place] Address [address] [address] Care Team Providers Care Trainer Name Role Phone Haile Maravilla Unavailable [phone] ALLERGIES No Known Allergies REASON FOR REFERRAL No Information MEDICATIONS Medication SIG (Take, Route, Frequency, Duration) Notes Start Date End Date Status Synthroid 88 MCG Oral for 60 Days Active Acetyl Salicylic Acid 01/14/2023 Active Crestor 10 MG 1 tablet Orally Once a day Active hydroCHLOROthiazide 25 MG Oral for 90 Days Active Fish Oil Active Calcium Active Aleve Active Deepthi Allergy 60 MG 1 tablet Orally Tw ice a day Active SOCIAL HISTORY Tobacco Use: [...] W/U Status Risk SNOMED Code Notes Problem 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) Active confirmed Inflammation o f left sacroiliac joint (1538522337) Problem History of lumbar laminectomy (Z98.890) Active confirmed History of lumb ar laminectomy (8133789738073240 8) Problem 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
[2024-06-25 13:34] LABS: Basophils Percent Auto 0.5 % (0.2-1.2); Eosinophils Absolute Auto 0.2 K/mm3 (0-0.3); Eosinophils Percent Auto 2.4 % (0-4.4); Hematocrit 43.2 % (37.0-47.0); Immature Granulocyte Absolute 0.03 K/mm3 (0.00-0.031); Immature Granulocyte Percent A 0.4 % (0-0.5); Lymphocytes Absolute Auto 1.79 K/mm3 (0.9-3.2); Lymphocytes Percent Auto 24.3 % (18.3-44.2); Mean Corpuscular HGB Conc 32.4 g/dl (32-36); Mean Corpuscular Hemoglobin 30.7 pg (26-34); Mean Corpuscular Volume 94.7 fl (80-100); Mean Platelet Volume 10.6 fl (7.4-10.4); Neutrophils Absolute Auto 4.3 K/mm3 (1.3-6.7); Neutrophils Percent Auto 58.4 % (45.5-73.1); Platelet Count Result 255 k/mm3 (150-375); Red Blood Count 4.56 M/mm3 (4.2-5.4); Red Cell Distribution Width 13.7 % (11.5-14.5); White Blood Count 7.4 K/mm3 (4.5-10.0)
[2024-06-25 13:39] LABS: Add Urine Microscopic? NO; Appearance Urine Clear (Clear); Bilirubin Urine Negative (Negative); Blood Urine Negative (Negative); Color Urine Yellow (Yellow); Glucose Urine UA Negative (Negative); Ketones Urine Negative (Negative); Leukocyte Esterase Ur Negative LEU/UL (Negative); Nitrate Urine Negative (Negative); Protein Urine Negative (Negative); Specific Grav Ur 1.014 (1.001-1.035)
[2024-06-25 13:49] LABS: Alanine Aminotransferase 21 U/L (6-35); Albumin Level 4.3 g/dL (3.5-5.1); Alkaline Phosphatase 88 U/L (38-126); Anion Gap 8 mmol/L (4-12); Aspartate Amino Transferase 67 U/L (14-36); Bilirubin,Total 0.7 mg/dL (0.2-1.3); Blood Urea Nitrogen 18 mg/dL (7-17); Calcium 8.9 mg/dL (8.4-10.2); Carbon Dioxide 32 mmol/L (22-30); Chloride 99 mmol/L (98-107); Cholesterol 174 mg/dL (0-200); Estimated Glomerular Filt Rate > 60; Glucose 109 mg/dL (65-110); HDL Direct 61 mg/dL; Potassium 3.9 mmol/L (3.4-5.0); Sodium 139 mmol/L (137-145); Triglycerides 122 mg/dL (<150)
[2024-06-25 14:00] LABS: LDL Cholesterol Direct 73 mg/dL
== END 2024-06-25 09:07 | disposition home or self-care (01) ==
PROVIDERS: PCP Internal Medicine
DX: E78.00 Pure hypercholesterolemia, unspecified (principal); I10 Essential (primary) hypertension
CPT/HCPCS: 36415; 80053; 80061; 81003; 85025

== ENCOUNTER 2025-02-22 08:34 | Outpatient (CLI) | payer MEDICARE, SELFPAY ==
--- OUTSIDE RECORDS SUMMARY | 2007-05-21 07:16 | XMS_ITS | Continuity of Care Document ---
Author Organization [facility] Address [address] [place] [address] [facility] [address] [place] [address] Phone Care Team Providers Care Dispatcher Bus And Trolley Name Role Phone LisandroTim worthington Unavailable Unavailable Procedures Procedure Date Eye Exam & Treatment Refraction Advance Directives Directive Yes / No Effective Date File Name No Information Encounters Encounter Description Practice Location Reason(s) For Visit Diagnoses Date Provider Providers Copied on Encounter [facility], [address] [place] [address] [address], [place], [place], [id number], tel:[phone] [facility] No Information [address] [facility] [address], [address], [place]. tel:[phone] Family History Family Member Type Diagnosis Age At Onset No Information Payers Payer name Insurance type Covered alliance party ID Authoriza tion(s) [place] [id number] [place] [id number] Social History Type Description Quantity Date Captured Comments Sex Female Smoking Status No Information Chief Complaint And Reason For Visit No Information Reason For Referral Reason For Referral No Information History Of Present Illness Encounter Date Complaint History Of Prese nt Illness No Information Functional Status Date Functional Assessmen t No Information Instructions Date Instruction Additional Infor mation No Information Assessments Type Assessment Date No Information Patient Care Teams Name Effective Dates (start - stop) Status Members No Information
--- OUTSIDE RECORDS SUMMARY | 2023-09-16 02:16 | XMS_ITS ---
Author Organization [facility] Address [address] [facility] [address], [place] [address] Care Team Providers Care Inpatient Nursing Aide Name Role Phone Daniel [place] Primary Care Provider Sandhya Soni REASON FOR VISIT Lab Results MEDICATIONS Medication SIG (Take, Route, Fr equency, Duration) Notes Start Date End Date Status Synthroid 112 MCG 1 Tablet Orally Once a day for 90 days Active Encounters Encounter Location Date Provider Diagnosis [facility] [address] [facility] [address], [place] [address] 09/16/2023 Sandhya Thornton Hypothyroidism, postop E89.0 ASSESSMENTS Encounter Date Diagnosis Assessment Notes Treatment Notes Treatment Clinical Notes Section Notes 09/16/2023 Hypothyroidism, postop (ICD-10 - E89.0) PLAN OF TREATMENT Medication Medication Name Sig Start Date Stop Date Notes Synthroid 112 MCG 1 Tablet Orally Once a day for 90 days Next Appt Details Provider Name:Sandhya Thornton, 06/21/2025 11:00:00 AM, [address] [facility] [address], [address],
--- OUTSIDE RECORDS SUMMARY | 2023-12-23 05:41 | XMS_ITS ---
Author Organization [facility] Address [address] [facility] [address] [address] Care Team Providers Care Business Performance Advisor Name Role Phone Daniel [place] Primary Care Provider Sandhya Soni REASON FOR VISIT Labs/Refill MEDICATIONS Medication SIG (Take, Route, Fr equency, Duration) Notes Start Date End Date Status Synthroid 100 MCG 1 tablet in the morn ing on an empty stomach Orally Once a day for 90 days 12/24/2023 Active Encounters Encounter Location Date Provider Diagnosis [facility] [address] [place] [address] 12/23/2023 Sandhya Thornton Hypothyroidism, postop E89.0 ASSESSMENTS Encounter Date Diagnosis Assessment Notes Treatment Notes Treatment Clinical Notes Section Notes 12/23/2023 Hypothyroidism, postop (ICD-10 - E89.0) PLAN OF TREATMENT Medication Medication Name Sig Start Date Stop Date Notes Synthroid 112 MCG 1 Tablet Orally Once a day Synthroid 100 MCG 1 tablet in the morn ing on an empty stomach Orally Once a day for 90 days 12/24/2023 Next Appt Details Provider Name:Sandhya Thornton, 06/21/2025 11:00:00 AM, [address], [address],
--- OUTSIDE RECORDS SUMMARY | 2023-12-23 05:45 | XMS_ITS ---
Author Organization [facility] Address [address] [address] Care Team Providers Care Rn Telephonic Name Role Phone Daniel [place] Primary Care Provider Najma Olivasman Sandhya Thornton Unavailable ALLERGIES No Known Allergies RESULTS Component Value Reference Range Notes TSH Reviewed date:12/24/2023 05:16:16 PM Interpretation: Performing Lab:[facility], [address] [place] [address], Phone - [phone], Director - [facility] Notes/Report: TSH 0.237 0.450-4.500 uIU/mL T4, Free Reviewed date:12/24/2023 05:10:53 PM Interpretation: Performing Lab:[email or web address] [place], [address] [place] [address], Phone - [phone], Director - Bhupinder Notes/Report: T4,Free(Direct) 2.10 0.82-1.77 ng/dL T3, Total Reviewed date:12/24/2023 05:10:58 PM Interpretation: Performing Lab:[facility] [place], [address] [place] [address], Phone - [phone], Director - [facility] Notes/Report: Triiodothyronine (T3) 90 71-180 ng/dL REASON FOR VISIT Hypothyroid, Papillary Thyroid Carcinoma, Follicular variant MEDICATIONS Medication SIG (Take, Route, Frequency, Duration) Notes Start Date End Date Status hydroCHLOROthiazide 25 MG 1 tablet in e morning Orally Once a day for 30 day(s) Active Rosuvastatin Calcium 10 MG 1 tablet Oral ly at bedtime Active Fexofenadine HCl 60 MG 1 tablet Orally Once a day Active Fish Oil 1000 MG 1 capsule Orally Once a day for 30 day(s) Active Centrum Silver - as directed Orally Active Aleve 220 MG 1 Tablet Orally Two Times a Day Active Synthroid 112 MCG 1 Tablet Orally Once a day Active Benadryl 1/2 tab qHS prn Active Calcium 500 MG 2 Tablets Orally Once a day Active SOCIAL HISTORY Tobacco Use: Social History Observation Description Date Details (start date - stop date) Former Smoker NA - NA Sex Assigned At : Social History Observation Description Sex Assigned At Unknown Tobacco Use/Smoking Question Answer Notes Are you a former smoker How long has it been since you last smoked? > 10 years VITAL SIGNS BMI 25.89 kg/m2 12/23/2023 Blood pressure systolic 126 mm Hg 12/23/19 Blood pressure diastolic 74 mm Hg 024 Heart Rate 72 /min 12/23/2023 Height 65 in 12/23/2023 Weight 155.6 lbs 12/23/2023 wt 162 on 06-17-23 Encounters Encounter Location Date Provider Diagnosis [facility] [address] [address] 12/23/2023 Sandhya Thornton Hypothyroidism, postop E89.0 and Papillary thyroid carcinoma C73 ASSESSMENTS Encounter Date Diagnosis Assessment Notes Treatment Notes Treatment Clinical Notes Section Notes 12/23/2023 Hypothyroidism , postop (ICD-10 - E89.0) Reviewed dosing and compliance. She's clinically Euthyroid. 12/23/2023 Papillary thyroid carcinoma (ICD-10 - C73) 12/02 The thyroid is surgically absent. 2015 US s/p thyroidectomy, negative 2014 US s/p thyroidectomy, negative 2012 discharged from Rad[facility]cology 2005 US unremarkable s/p thyroidectomy 2002 s/p total thyroidectomy, RAIA T1N0 PTC She denies obstructive symptoms. She has no palpable thyroid tissue or cervical LAD. PLAN OF TREATMENT Medication Medication Name Sig Start Date Stop Date Notes Synthroid 112 MCG 1 Tablet Orally Once a day Treatment Notes Assessment Notes Hypothyroidism, postop Reviewed dosing a nd compliance. She's clinically Euthyroid. Papillary thyroid carcinoma She denies o bstructive symptoms. She has no palpable thyroid tissue or cervical LAD. Next Appt Details Follow Up: 6 Months, Reason: Provider Name:Sandhya Thornton, 06/21/2025 11:00:00 AM, [address], [place], [address], Progress Notes * Examination Category Sub-Category Detail Notes Category Not es General Examination GENERAL APPEARANCE: appearance wnl HEAD: normocephalic, atrau matic EYES: conjunctivae and lid s wnl. no exophthalmos NECK: supple, no lymphaden opathy HEART: S1, S2, No murmurs. RRR LUNGS: effort nonlabored. c lear to auscultation bilaterally ABDOMEN: no distention, jacob s, or tenderness. bowel sounds normal NEUROLOGIC: no tremor. deep tend on reflexes normal SKIN: no apparent lesions EXTREMITIES: no edema BREASTS: MUSCULOSKELETAL: station and gait nor mal. Muscle strength normal PSYCH: oriented x 3. memory wnl THYROID absent, surgical sca r History and Physical Notes * HPI (History of Present Illness) Category Sub-Category Detail Notes Category Not es _ 83 y/o F f/u. S he denies new medical problems. Her energy is good. She sleeps well with aid. She denies dysphagia and dyspnea. She has dysphonia in the mornings. She denies palpitations. She denies diarrhea and constipation. She's compliant with daily thyroid hormone.
--- OUTSIDE RECORDS SUMMARY | 2024-02-17 04:46 | XMS_ITS ---
Author Organization [facility] Address [address] [address] Care Team Providers Care School Psychological Examiner Name Role Phone Purnima, Surubaldobernadine Primary Care Provider Sandhya Soni [phone] REASON FOR VISIT CCM MEDICATIONS Medication SIG (Take, Route, Fr equency, Duration) Notes Start Date End Date Status Omeprazole 20 MG 1 capsule 1/2 to 1 h our before morning meal Orally Once a day for 30 day(s) 02/17/2024 Active Encounters Encounter Location Date Provider Diagnosis [facility] [address] [address] 02/17/2024 Sandhya Thornton PLAN OF TREATMENT Medication Medication Name Sig Start Date Stop Date Notes Omeprazole 20 MG 1 capsule 1/2 to 1 h our before morning meal Orally Once a day for 30 day(s) 02/17/2024 Next Appt Details Provider Name:Sandhya Thornton, 06/21/2025 11:00:00 AM, [address], [address],
--- OUTSIDE RECORDS SUMMARY | 2024-03-05 04:01 | XMS_ITS ---
Author Organization [facility] Address [address] [address] Care Team Providers Care Senior Financial Name Role Phone Daniel [place] Primary Care Provider Sandhya Soni REASON FOR VISIT Synthroid Question MEDICATIONS Medication SIG (Take, Route, Fr equency, Duration) Notes Start Date End Date Status Synthroid 100 MCG 1 tablet in the morn ing on an empty stomach Orally Once a day for 30 day(s) 03/10/2024 Active Encounters Encounter Location Date Provider Diagnosis [facility] [address] [address] 03/05/2024 Sandhya Thornton PLAN OF TREATMENT Medication Medication Name Sig Start Date Stop Date Notes Synthroid 112 MCG TAKE 1 TABLET BY RALPH TH EVERY DAY FOR 90 DAYS Synthroid 100 MCG 1 tablet in the morn ing on an empty stomach Orally Once a day for 30 day(s) 03/10/2024 Next Appt Details Provider Name:Sandhya Thornton, 06/21/2025 11:00:00 AM, [address], [address],
--- OUTSIDE RECORDS SUMMARY | 2024-06-22 06:00 | XMS_ITS ---
Author Organization [facility] Address [address] [address] Care Team Providers Care Aerial Gunner Name Role Phone Daniel [place] Primary Care Provider Najma Olivasman Sandhya Thornton Unavailable [phone] ALLERGIES No Known Allergies RESULTS Component Value Reference Range Notes TSH Reviewed date:06/24/2024 05:38:27 PM Interpretation: Performing Lab:[facility], [address] [place] [address], Phone - [phone], Director - Bhupinder Notes/Report: TSH 2.180 0.450-4.500 uIU/mL T4, Free Reviewed date:06/24/2024 02:10:46 PM Interpretation: Performing Lab:[facility], [address] [place] [address], Phone - [phone], Director - Bhupinder Notes/Report: T4,Free(Direct) 1.90 0.82-1.77 ng/dL T3, Total Reviewed date:06/24/2024 02:11:11 PM Interpretation: Performing Lab:[facility], [address] [place] [address], Phone - [phone], Director - Bhupidner Notes/Report: Triiodothyronine (T3) 73 71-180 ng/dL REASON FOR VISIT Hypothyroid, Papillary Thyroid Carcinoma, Follicular variant MEDICATIONS Medication SIG (Take, Route, Frequency, Duration) Notes Start Date End Date Status Fexofenadine HCl 60 MG 1 tablet Orally Once a day Active Omeprazole 20 MG 1 capsule 1/2 to 1 hour before morning meal Orally Once a day for 30 day(s) 02/17/2024 Active Aleve 220 MG 1 Tablet Orally Two Times a Day Active Synthroid 100 MCG TAKE 1 TABLET BY MOUTH EVERY DAY IN THE MORNING ON EMPTY STOMACH FOR 90 DAYS Active Calcium 500 MG 2 Tablets Orally Once a day Active hydroCHLOROthiazide 25 MG 1 tablet in th e morning Orally Once a day for 30 day(s) Active Benadryl 1/2 tab qHS prn Active Centrum Silver - as directed Orally Active Fish Oil 1000 MG 1 capsule Orally Once a day for 30 day(s) Active Rosuvastatin Calcium 10 MG 1 tablet Oral ly at bedtime Active SOCIAL HISTORY Tobacco Use: Social History Observation Description Date Details (start date - stop date) Former Smoker NA - NA Sex Assigned At : Social History Observation Description Sex Assigned At Unknown Tobacco Use/Smoking Question Answer Notes Are you a former smoker How long has it been since you last smoked? > 10 years VITAL SIGNS BMI 24.89 kg/m2 2024 Blood pressure systolic 128 mm Hg 06/23/19 25 Blood pressure diastolic 70 mm Hg 025 Heart Rate 80 /min 2024 Height 65 in 2024 Weight 149.6 lbs 2024 wt 155 on 12-23-23 Encounters Encounter Location Date Provider Diagnosis [facility] [address] [address] 2024 Sandhya Thornton Hypothyroidism, postop E89.0 and Papillary thyroid carcinoma C73 ASSESSMENTS Encounter Date Diagnosis Assessment Notes Treatment Notes Treatment Clinical Notes Section Notes 2024 Hypothyroidism , postop (ICD-10 - E89.0) Reviewed dosing and compliance. She is clinically Euthyroid. 2024 Papillary thyroid carcinoma (ICD-10 - C73) 12/02 The thyroid is surgically absent. 2015 US s/p thyroidectomy, negative 2014 US s/p thyroidectomy, negative 2012 discharged from Rad[facility]cology 2005 US unremarkable s/p thyroidectomy 2003 s/p total thyroidectomy, RAIA T1N0 PTC She denies obstructive symptoms. She has no palpable thyroid tissue or cervical LAD. PLAN OF TREATMENT Medication Medication Name Sig Start Date Stop Date Notes Synthroid 100 MCG TAKE 1 TABLET BY RALPH TH EVERY DAY IN THE MORNING ON EMPTY STOMACH FOR 90 DAYS Treatment Notes Assessment Notes Hypothyroidism, postop Reviewed dosing a nd compliance. She is clinically Euthyroid. Papillary thyroid carcinoma She denies o bstructive symptoms. She has no palpable thyroid tissue or cervical LAD. Next Appt Details Follow Up: 6 Months, Reason: Provider Name:Sandhya Thornton, 06/21/2025 11:00:00 AM, [address] [facility] [address], [place], [address], Progress Notes * Examination Category Sub-Category Detail [...] Sub-Category Detail Notes Category Not es _ 84 y/o F f/u. S he denies new medical problems. Her energy is good. She doesn't sleep well. She denies dysphagia, dysphonia, and dyspnea. She denies palpitations. She denies diarrhea and constipation. She's compliant with daily thyroid hormone.
--- OUTSIDE RECORDS SUMMARY | 2024-12-21 05:30 | XMS_ITS ---
Author Organization [facility] Address [address] [address] Care Team Providers Care Leg Man Name Role Phone PurnimaDaniel ball Primary Care Provider Najma Olivasman Sandhya Thornton Unavailable ALLERGIES No Known Allergies RESULTS Component Value Reference Range Notes Thyroid Profile (In-House) ( TSH3+TT3+FT4) Reviewed date:12/28/2024 01:29:40 PM Interpretation: Performing Lab: Notes/Report: TSH3 2.22 0.45 - 5.33 uIU/mL TT3 0.83 0.62 - 1.62 ng/mL FT4 1.35 0.62 - 1.58 ng/dL REASON FOR VISIT Hypothyroid, Papillary Thyroid Carcinoma, Follicular variant MEDICATIONS Medication SIG (Take, Route, Frequency, Duration) Notes Start Date End Date Status Fexofenadine HCl 60 MG 1 tablet Orally Once a day Active Calcium 500 MG 2 Tablets Orally Once a day Active Aleve 220 MG 1 Tablet Orally Two Times a Day Active Omeprazole 20 MG 1 capsule 1/2 to 1 hour before morning meal Orally Once a day for 30 day(s) 02/17/2024 Active Centrum Silver - as directed Orally Active Benadryl 1/2 tab qHS prn Active hydroCHLOROthiazide 25 MG 1 tablet in th e morning Orally Once a day for 30 day(s) Active Rosuvastatin Calcium 10 MG 1 tablet Oral ly at bedtime Active Fish Oil 1000 MG 1 capsule Orally Once a day for 30 day(s) Active Synthroid 100 MCG 1 tablet in the morning on an empty stomach Orally Once a day Active SOCIAL HISTORY Tobacco Use: Social History Observation Description Date Details (start date - stop date) Former Smoker NA - NA Sex Assigned At : Social History Observation Description Sex Assigned At Unknown Tobacco Use/Smoking Question Answer Notes Are you a former smoker How long has it been since you last smoked? > 10 years VITAL SIGNS BMI 24.66 kg/m2 12/21/2024 Blood pressure systolic 132 mm Hg 12/22/19 25 Blood pressure diastolic 74 mm Hg 025 Heart Rate 80 /min 12/21/2024 Height 65 in 12/21/2024 Weight 148.2 lbs 12/21/2024 wt 149 on 06-22-24 Encounters Encounter Location Date Provider Diagnosis [facility] [address] [address] 12/21/2024 Sandhya Cardonajake Hypothyroidism, postop E89.0 and Papillary thyroid carcinoma C73 ASSESSMENTS Encounter Date Diagnosis Assessment Notes Treatment Notes Treatment Clinical Notes Section Notes 12/21/2024 Hypothyroidism , postop (ICD-10 - E89.0) Reviewed dosing and compliance. She's clinically Euthyroid. 12/21/2024 Papillary thyroid carcinoma (ICD-10 - C73) 12/02 The thyroid is surgically absent. 2015 US s/p thyroidectomy, negative 2014 US s/p thyroidectomy, negative 2012 discharged from Radiation [facility]cology 2006 US unremarkable s/p thyroidectomy 2003 s/p total thyroidectomy, RAIA T1N0 PTC She denies obstructive symptoms. She's has no palpable thyroid nodules or cervical LAD. PLAN OF TREATMENT Medication Medication Name Sig Start Date Stop Date Notes Synthroid 100 MCG 1 tablet in the morn ing on an empty stomach Orally Once a day Treatment Notes Assessment Notes Hypothyroidism, postop Reviewed dosing a nd compliance. She's clinically Euthyroid. Papillary thyroid carcinoma She denies o bstructive symptoms. She's has no palpable thyroid nodules or cervical LAD. Next Appt Details Follow Up: 6 Months, Reason: Provider Name:Sandhyaeri Ventura komal Thornton, 06/21/2025 11:00:00 AM, [address] [facility] [address], [place], [address], Progress Notes * Examination Category Sub-Category Detail [...] denies new medical problems. Her energy is good and she sleeps well with aid. She denies dysphagia, dysphonia and dyspnea. She denies palpitations. She denies diarrhea and constipation. She's compliant with daily thyroid hormone.
--- OUTSIDE RECORDS SUMMARY | 2025-02-22 08:51 | XMS_ITS | Clinical Summary ---
Author Organization [facility] Address [address] [place] [address] Phone Care Team Providers Care Store Deli Manager Name Role Phone Shawn Constantino MD Primary Care Provider [phone]- [phone] Allergies No known active allergies Medications rosuvastatin [...] Take 500 mg by mouth daily. Active dkthg-[id number]-EPA -fish oil (Fish OiL) 1,000 mg Capsule [...] 08/06/2022 Malignant neoplasm of thyroid gland 08/06/2022 Social History Tobacco Use Types Packs/Day Years Used Date Smoking Tobacco: Former Cigarettes Tobacco Cessation:Counseling Given: Not Answered Comments Unknown Sex and Gender Information Value Date Recorded Sex Assigned at Not on file Legal Sex Female 3:59 AM TOOL AND DIE REPAIRER Gender Identity Not on file Sexual Orientation Not on file Last Filed Vital Signs Vital Sign Reading Time Taken Comments Blood Pressure - - Pulse - - Temperature - - Respiratory Rate - - Oxygen Saturation - - Inhaled Oxygen Concentration - - Weight 70.3 kg (155 lb) 08/21/2023 10:03 AM CDT Height 165.1 cm (5' 5) 08/21/2023 10:03 AM CDT Body Mass Index 25.79 08/21/2023 10:03 AM CDT Plan of Treatment Health Maintenance Due Date Last Done Comments DTAP/TDAP/TD VACCINES (1 - Tdap) 06/21/1959 PNEUMOCOCCAL VACCINE 50+ YEA RS (1 of 1 - PCV) 06/21/1989 ZOSTER VACCINE (1 of 2) 06/21/1989 OSTEOPOROSIS SCREENING 06/21/2004 RSV VACCINE (60+ or ) (1 - 1-dose 75+ series) 06/21/2014 INFLUENZA VACCINE (#1) 2024 FIT/FOBT Q 1 year Discontinued 10/26/1999 COLORECTAL SCREENING Discontinued 12/13/2014, 10/20/19 05 Colorectal Cancer Screening Discontinued FIT-DNA Q 3 years Discontinued Flex Sig/CT Colonography Q 5 years Discontinued Procedures Procedure Name Priority Date/Time Associated Diagnosis Comments ENDOSCOPY, COLON, SCREENING Routine 12/13/2014 from Last 3 Months or Most Recently Relevant to Health Maintenance Results * (ABNORMAL) ENDOSCOPY, COLON, SCREENING (12/13/2014) Saeed Pillai MD GI PROCEDURE ORDERABLES Edited R esult - Final [facility] from Last 3 Months or Most Recently Relevant to Health Maintenance Insurance BCBS SUPP MEDICARE PART A AND B Care Teams Store Deli Manager Relationship Specialty Start Date End Date Shawn Constantino MD [facility] [address] [place] [address] PCP - General Interventional Cardiology 12/02/14
--- OUTSIDE RECORDS SUMMARY | 2025-02-22 08:52 | XMS_ITS | Encounter Summary ---
Author Organization [facility] Address [address] [place] [address] Care Team Providers Care Golf Player Assistant Name Role Phone Shawn Constantino MD Primary Care Provider [phone]- [phone] Encounter Details Date Type Department Care Team (Late st Contact Info) Description 10/26/1999 Outpatient Historical [facility] Shawn Constantino MD [address] [place] [address] Social History Tobacco Use Types Packs/Day Years Used Date Smoking Tobacco: Never Assessed Comments Unknown Sex and Gender Information Value Date Recorded Sex Assigned at Not on file Legal Sex Female 3:59 AM BELT MEASURER Gender Identity Not on file Sexual Orientation Not on file documented as of this encounter Plan of Treatment Not on file documented as of this encounter Visit Diagnoses Not on filedocumented in this encounter Care Teams Golf Player Assistant Relationship Specialty Start Date End Date Shawn Constantino MD [address] [place] [id number] PCP - General Interventional Cardiology 12/02/14 documented as of this encounter
--- OUTSIDE RECORDS SUMMARY | 2025-02-22 08:53 | XMS_ITS | Patient Health Record ---
Author Organization [facility] Address [address] [address] Care Team Providers Care Front Office Administrator Name Role Phone Daniel Felton Primary Care Provider Najma anglin Sandhya Joy Unavailable ALLERGIES No Known Allergies RESULTS Component Value Reference Range Notes TSH Reviewed date:06/24/2024 05:38:27 PM Interpretation: Performing Lab:[facility], [address] [place] [address], Phone - [phone], Director - PhDClover Hill Hospitalricci Notes/Report: TSH 2.180 0.450-4.500 uIU/mL T4, Free Reviewed date:06/24/2024 02:10:46 PM Interpretation: Performing Lab:[facility], [address] [place] [address], Phone - [phone], Director - Bhupinder Notes/Report: T4,Free(Direct) 1.90 0.82-1.77 ng/dL T3, Total Reviewed date:06/24/2024 02:11:11 PM Interpretation: Performing Lab:[facility], [address] [facility], Phone - [phone], Director - PhDStonegateway rehabilitation hospitalfelipe Notes/Report: Triiodothyronine (T3) 73 71-180 ng/dL Thyroid Profile (In-House) ( TSH3+TT3+FT4) Reviewed date:12/28/2024 01:29:40 PM Interpretation: Performing Lab: Notes/Report: TSH3 2.22 0.45 - 5.33 uIU/mL TT3 0.83 0.62 - 1.62 ng/mL FT4 1.35 0.62 - 1.58 ng/dL REASON FOR REFERRAL No Information MEDICATIONS [...] a day for 30 day(s) 02/17/2024 Active Benadryl 1/2 tab qHS prn Active [...] Once a day for 90 days Active Centrum Silver - as directed Orally Active SOCIAL HISTORY Tobacco Use: Social History [...] carcinoma (C73) Active confirmed Papillary thyroid carcinoma (211733481) 12/02 The thyroid is surgically absent. 2015 US s/p thyroidectomy, negative 2014 US s/p thyroidectomy, negative 2012 discharged from Radiation Oncology 2005 US unremarkable s/p thyroidectomy 2003 s/p total thyroidectomy, RAIA T1N0 PTC Problem Hypothyroidi sm, postop (E89.0) Active confirmed Postoperative Hypothyroidism (41041019) VITAL SIGNS Heart Rate 80 /min 12/21/2024 wt 149 on Blood pressure diastolic 74 mm Hg 12/21/2024 wt 149 on 06-22-24 Height 65 in 12/21/2024 wt 149 on Blood pressure systolic 132 mm Hg 12/21/2024 wt 1 49 on 06-22-24 Weight 148.2 lbs 12/21/2024 wt 149 on BMI 24.66 kg/m2 12/21/2024 wt 149 on Encounters Encounter Location Date Provider Diagnosis [facility] [address] [address] 2024 Sandhya Thornton Hypothyroidism, postop E89.0 and Papillary thyroid carcinoma C73 [facility] [address] [address] 12/21/2024 Sandhya Thornton Hypothyroidism, postop E89.0 and Papillary thyroid carcinoma C73 [facility] [address] [address] 03/05/2024 Sandhya Thornton ASSESSMENTS Encounter Date Diagnosis Assessment Notes Treatment [...] no palpable thyroid tissue or cervical LAD. 12/21/2024 Hypothyroidism , postop (ICD-10 - E89.0) [...] nodules or cervical LAD. PLAN OF TREATMENT Next Appt Details Provider Name:Sandhya sauceda Floydlacey, 06/21/2025 11:00:00 AM, [address], [address], Insurance Providers Payer Name Payer Address Payer Phone Subscriber Number Group Number Insured Name Patient Relationship to Insured Coverage Start Date Coverage End Date Medicare [address] [address] [place] [address] [id number] Nohelia Hinojosa Self - patient is the insured Blue Cross/Blue Shield LOCAL (USE THIS ONE) [address] [place] [address] [id number] Nohelia Hinojosa Self - patient is the insured MEDICAL (GENERAL) HISTORY Medical History History ICD Code HBP High Cholesterol Hypothyroid s/p total thyroidectomy 2002 Papillary Thyroid Carcinoma, follicular variant MVP Essential Tremor OA Ivan's Thyroiditis Surgical History Surgery Date(Month/Year) Gall Bladder 1999 Thyroidectomy 2002 T+A 1945 Back Surgery - L4/5 discectomy 11/2022 Hospitalization History Reason Date(Month/Year) no recent hospitalization
--- OUTSIDE RECORDS SUMMARY | 2025-02-22 08:53 | XMS_ITS | Patient Health Record ---
Author Organization [facility] [place] Address [address] [address] Care Team Providers Care Chief Of Staff Doctor Name Role Phone Haile Maravilla Unavailable [phone] Allergies No Known Allergies Reason For Referral No Information Medications Medication SIG (Take, Route, Frequency, Duration) Notes Start Date End Date Status Synthroid 88 MCG Oral; Duration: 60 Days Active Acetyl Salicylic Acid 01/14/2023 Active Crestor 10 MG 1 tablet Orally Once a day Active hydroCHLOROthiazide 25 MG Oral; Duration: 90 Days Active Fish Oil Active Calcium Active Aleve Active Deepthi Allergy 60 MG 1 tablet Orally Tw ice a day Active Social History Tobacco Use: Social History Observation Description Date Details (start date - stop date) Former Smoker NA - NA Tobacco Use/Smoking Question Answer Notes Are you a former smoker How long has it been since you last smoked? 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
--- OUTSIDE RECORDS SUMMARY | 2025-02-22 08:53 | XMS_ITS | Clinical Summary ---
Author Organization [facility] [address] [place] Address [address] [place] [address] Care Team Providers Care Scout Leaser Name Role Phone Unknown, Notinfile Primary Care Provider Unavail able Allergies No known active allergies Medications Synthroid 100 mcg tablet 02/16/2022 Active rosuvastatin (CRESTOR) 10 mg tablet Take 1 tablet (10 mg total) by mouth daily Active hydroCHLOROthia zide (HYDRODIURIL) 25 mg tablet Take 1 tablet (25 mg total) by mouth daily Active multivitamin tablet Take 1 tablet by mouth daily Active aspirin 81 mg enteric coated tablet 1 tablet (81 mg total) 04/20/2013 Active calcium carbonate-vitam in D3 1,250mg (500mg elemental) - 5 mcg (200 units) per tablet 1 tablet(s), Oral, bid, 270 tablet(s), Tablet(s), 0 04/20/2013 Active omega-3 fatty acids 1,000 mg capsule 1,000 mg 04/20/2013 Active benzonatate (TESSALON) 100 mg capsuleIndicati ons:Cough Take 1 capsule (100 mg total) by mouth 3 (three) times a day as needed for cough 21 capsule 08/01/2022 Active Active Problems Problem Noted Date Diagnosed [...] on file Legal Sex Female 11:33 AM FLEXOGRAPHIC PRESS HELPER Gender Identity Not on file Sexual Orientation Not on file Last Filed Vital Signs Vital Sign Reading Time Taken Comments Blood Pressure 128/76 05/24/2024 10:08 AM FLEXOGRAPHIC PRESS HELPER Pulse 68 05/24/2024 10:08 AM FLEXOGRAPHIC PRESS HELPER Temperature 36.6 C (97.8 F) 05/24/2024 10:08 AM FLEXOGRAPHIC PRESS HELPER Respiratory Rate 24 05/24/2024 10:08 AM FLEXOGRAPHIC PRESS HELPER Oxygen Saturation 97% 05/24/2024 10:08 AM FLEXOGRAPHIC PRESS HELPER Inhaled Oxygen Concentration - - Weight 68 kg (150 lb) 05/24/2024 10:08 AM FLEXOGRAPHIC PRESS HELPER Height 165.1 cm (5' 5) 01/17/2024 9:34 AM CDT Body Mass Index [...] PCV) 07/27/2021 07/27/2020 Covid-19 Vaccine (2 - 2024-2 6 season) 2024 02/06/2021 Influenza Vaccine (#1) 2024 3, 02/06/2022, 02/06/2022, Additional history exists Insurance MEDICARE [facility] BLUE CROSS MEDICARE SUPPLEMENT Care Teams Scout Leaser Relationship Specialty Start Date End Date Unknown, Notinfile PCP - General 02/22/22
[2025-02-22 12:57] LABS: Hematocrit 43.5 % (37.0-47.0); Hemoglobin 14.0 g/dL (12.0-15.0); Immature Granulocyte Percent A 0.5 % (0-0.5); Lymphocytes Absolute Auto 2.10 K/mm3 (0.9-3.2); Mean Corpuscular HGB Conc 32.2 g/dl (32-36); Mean Corpuscular Hemoglobin 30.5 pg (26-34); Mean Corpuscular Volume 94.8 fl (80-100); Nucleated Red Blood Cells Absolute Auto 0.000 K/mm3 (0.0-0.012); Nucleated Red Blood Cells Perc 0.0 % (0.0-0.2); Platelet Count Result 275 k/mm3 (150-375); Red Blood Count 4.59 M/mm3 (4.2-5.4); White Blood Count 8.6 K/mm3 (4.5-10.0)
[2025-02-22 13:12] LABS: Alanine Aminotransferase 21 U/L (6-35); Albumin Level 4.3 g/dL (3.5-5.1); Alkaline Phosphatase 87 U/L (38-126); Anion Gap 6 mmol/L (4-12); Aspartate Amino Transferase 45 U/L (14-36); Bilirubin,Total 0.6 mg/dL (0.2-1.3); Blood Urea Nitrogen 22 mg/dL (7-17); Calcium 9.4 mg/dL (8.4-10.2); Carbon Dioxide 33 mmol/L (22-30); Chloride 97 mmol/L (98-107); Cholesterol 182 mg/dL (0-200); Estimated Glomerular Filt Rate 59; Glucose 88 mg/dL (65-110); HDL Direct 56 mg/dL; Potassium 4.6 mmol/L (3.4-5.0); Sodium 136 mmol/L (137-145); Total Protein 7.4 g/dL (6.3-8.2); Triglycerides 115 mg/dL (<150)
== END 2025-02-22 08:35 | disposition home or self-care (01) ==
DX: E78.00 Pure hypercholesterolemia, unspecified (principal); E89.0 Postprocedural hypothyroidism; I10 Essential (primary) hypertension
CPT/HCPCS: 36415; 80053; 80061; 85025